=== PATIENT | female | born 1985 | race Caucasian/White ===

== ENCOUNTER 2021-04-26 17:55 | Emergency (ER) | payer BC ==
[~2021-04-26] VITALS: Ht 165.1 cm; Wt 120.2 kg
[2021-04-26] MEDS ORDERED: DIPH12.529 PO (20:49)
[2021-04-26] MEDS ORDERED: SYMB80INH INH (20:49)
[2021-04-26] MEDS ORDERED: PROT20TA11 PO (20:49)
[2021-04-26] MEDS ORDERED: CYCL-707 PO (20:49)
[2021-04-26 21:52] LABS: BASO % 0.4 % (0.0-1.0); EOS # 0.4 10^3/uL (0.0-0.5); EOS % 4.1 % (0.0-3.0); HEMATOCRIT 41.2 % (36.0-47.0); HEMOGLOBIN 13.8 g/dl (12.0-15.5); LYMPH # 2.9 10^3/uL (1.5-5.0); LYMPH % 32.1 % (24.0-44.0); MEAN CORPUSCULAR HEMOGLOBIN 28.9 pg (27.0-33.0); MEAN CORPUSCULAR HGB CONC 33.5 g/dl (32.0-36.5); MEAN CORPUSCULAR VOLUME 86.4 fl (80.0-96.0); MONO # 0.6 10^3/uL (0.0-0.8); MONO % 6.2 % (2.0-8.0); NEUTROPHILS # 5.2 10^3/uL (1.5-8.5); NEUTROPHILS % 56.9 % (36.0-66.0); PLATELET COUNT, AUTOMATED 244 10^3/uL (150-450); RED BLOOD COUNT 4.77 10^6/uL (4.00-5.40); WHITE BLOOD COUNT 9.2 10^3/uL (4.0-10.0)
[2021-04-26 22:10] LABS: HCG, SERUM QUALITATIVE NEGATIVE (NEGATIVE)
[2021-04-26 22:18] LABS: ALBUMIN 3.7 GM/DL (3.2-5.2); ALT/SGPT 30 U/L (12-78); BILIRUBIN,DIRECT 0.3 MG/DL (0.0-0.2); BILIRUBIN,TOTAL 1.2 MG/DL (0.2-1.0); BLOOD UREA NITROGEN 11 MG/DL (7-18); CALCIUM LEVEL 9.2 MG/DL (8.5-10.1); CARBON DIOXIDE LEVEL 25 MEQ/L (21-32); CHLORIDE LEVEL 110 MEQ/L (98-107); CK-MB VALUE MASS < 1.0 NG/ML (<3.6); CPK CREATINE PHOSPHOKINASE 83 U/L (26-192); FREE T4 1.06 NG/DL (0.76-1.46); GLOMERULAR FILTRATION RATE > 60.0 (>60); GLUCOSE, FASTING 97 MG/DL (70-100); LIPASE 92 U/L (73-393); POTASSIUM SERUM 3.9 MEQ/L (3.5-5.1); SODIUM LEVEL 140 MEQ/L (136-145); TOTAL PROTEIN 7.2 GM/DL (6.4-8.2); TROPONIN I < 0.02 NG/ML (< 0.10)
--- NOTE | 2021-04-26 23:24 | REPVR ---
PROCEDURE INFORMATION: Exam: US Abdomen, Limited; Right Upper Quadrant Exam date and time: 04/26/21 (10:02pm) Age: 35 years old Clinical indication: RUQ pain. Epigastric pain. TECHNIQUE: Imaging protocol: US abdomen. Real time ultrasound with image documentation. Limited examination focused on the right upper quadrant. COMPARISON: No relevant prior studies available FINDINGS: The liver is visually normal in size and texture. The gallbladder has normal wall thickness (2.2 mm), with no stones nor sludge seen. No pericholecystic fluid is appreciated. The sonographic Estevez's sign is reported to be (+). The CBD is not dilated (3.8 mm diameter). The pancreas appears unremarkable. The right kidney measures 11.7 cm in length, with no hydronephrosis appreciated. No ascites is seen. IMPRESSION: No gallstones nor sludge are seen. No pericholecystic fluid. No biliary dilatation. It is reported that the patient experienced tenderness over the RUQ area during the examination. No abnormal fluid collections. Electronically signed by: Stephenie Coelho On 04/26/2021 23:24:17 PM
--- NOTE | 2021-04-26 23:27 | REPVR ---
PROCEDURE INFORMATION: Exam: XR Chest Exam date and time: 04/26/21 (10:21pm) Age: 35 years old Clinical indication: Angina pectoris TECHNIQUE: Imaging protocol: XR of the chest Views: 1 view COMPARISON: No relevant prior studies available FINDINGS: Lungs: Unremarkable. No consolidation. Pleural spaces: Unremarkable. No pleural effusions. No pneumothorax. Heart/Mediastinum: Unremarkable. No cardiomegaly. Bones/joints: Unremarkable. IMPRESSION: No acute findings. Electronically signed by: Stephenie Coelho On 04/26/2021 23:26:46 PM
[2021-04-27] MEDS ORDERED: SUCR1SS PO (00:26)
[2021-04-27 00:45] VITALS: BP 154/73
--- NOTE | 2021-04-27 17:40 | ECGEPIP ---
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
== END 2021-04-27 00:48 | disposition home or self-care (01) ==
LOC: M ED 17:55
DX: K29.50 Unspecified chronic gastritis without bleeding (principal); J45.909 Unspecified asthma, uncomplicated; K21.9 Gastro-esophageal reflux disease without esophagitis; L40.50 Arthropathic psoriasis, unspecified; Z88.0 Allergy status to penicillin; Z79.899 Other long term (current) drug therapy

== ENCOUNTER 2021-08-18 21:06 | Emergency (ER) | payer BC ==
[~2021-08-18] VITALS: Ht 165.1 cm; Wt 120.5 kg
[~2021-08-18 21:06] MED LIST: CYCL-707 PO; DIPH12.529 PO; PROT20TA11 PO; SUCR1SS PO; SYMB80INH INH
[2021-08-18] MEDS ORDERED: NS 1,000 ML IV SCH (21:35)
[2021-08-18] MEDS ORDERED: PANTOPRAZOLE 40MG VIAL (C9113 PER 1) IV ONE (21:35)
[2021-08-18] MEDS ORDERED: GI COCKTAIL 50ML BTL(HYOSCYAMINE/MAALOX/LIDOCAINE VISCOUS)(1:3:1) PO ONE (21:35)
[2021-08-18 22:25] LABS: BASO % 0.4 % (0.0-1.0); EOS # 0.1 10^3/uL (0.0-0.5); HEMATOCRIT 43.7 % (36.0-47.0); HEMOGLOBIN 14.6 g/dl (12.0-15.5); LYMPH # 1.9 10^3/uL (1.5-5.0); LYMPH % 19.7 % (24.0-44.0); MEAN CORPUSCULAR HEMOGLOBIN 29.1 pg (27.0-33.0); MEAN CORPUSCULAR HGB CONC 33.4 g/dl (32.0-36.5); MEAN CORPUSCULAR VOLUME 87.2 fl (80.0-96.0); MONO # 0.3 10^3/uL (0.0-0.8); NEUTROPHILS # 7.5 10^3/uL (1.5-8.5); NEUTROPHILS % 75.7 % (36.0-66.0); RED BLOOD COUNT 5.01 10^6/uL (4.00-5.40); WHITE BLOOD COUNT 9.9 10^3/uL (4.0-10.0)
[2021-08-18 22:49] LABS: ALT/SGPT 32 U/L (12-78); BLOOD UREA NITROGEN 13 MG/DL (7-18); CALCIUM LEVEL 9.4 MG/DL (8.5-10.1); CARBON DIOXIDE LEVEL 26 MEQ/L (21-32); CHLORIDE LEVEL 109 MEQ/L (98-107); CREATININE FOR GFR 0.84 MG/DL (0.55-1.30); GLOMERULAR FILTRATION RATE > 60.0 (>60); GLUCOSE, FASTING 111 MG/DL (70-100); POTASSIUM SERUM 4.8 MEQ/L (3.5-5.1); SODIUM LEVEL 140 MEQ/L (136-145)
[2021-08-18 22:50] LABS: ALBUMIN 3.9 GM/DL (3.2-5.2); BILIRUBIN,DIRECT < 0.1 MG/DL (0.0-0.2); BILIRUBIN,TOTAL 0.3 MG/DL (0.2-1.0); LIPASE 102 U/L (73-393); TOTAL PROTEIN 7.6 GM/DL (6.4-8.2)
[2021-08-18 22:53] LABS: HCG, SERUM QUALITATIVE NEGATIVE (NEGATIVE)
[2021-08-18] MEDS: GASTROGRAFIN SOLUTION 30ML PO SCH (23:58)
[2021-08-19] MEDS: GASTROGRAFIN SOLUTION 30ML PO SCH (00:10)
[2021-08-19 00:57] VITALS: BP 140/58
== END 2021-08-19 02:30 | disposition home or self-care (01) ==
LOC: EDBD 21:06 → M ED 21:06
DX: K42.9 Umbilical hernia without obstruction or gangrene (principal); J45.909 Unspecified asthma, uncomplicated; M48.00 Spinal stenosis, site unspecified; Z87.19 Personal history of other diseases of the digestive system; Z88.0 Allergy status to penicillin; Z79.899 Other long term (current) drug therapy
CPT/HCPCS: 74177; 80048; 80076; 83690; 84484; 84703; 85025; 93005; 93041; 96361; 96374; 99285; C9113; Q9963

== ENCOUNTER → 2021-10-17 | Outpatient (CLI) | payer BC | LOC: M PAIN 13:00 | PROVIDERS: ATTEND Nurse Practitioner Family | DX: M51.34 Other intervertebral disc degeneration, thoracic region (principal); R07.81 Pleurodynia; G89.4 Chronic pain syndrome; L40.50 Arthropathic psoriasis, unspecified; Z79.899 Other long term (current) drug therapy; Z87.891 Personal history of nicotine dependence; Z88.0 Allergy status to penicillin; J30.9 Allergic rhinitis, unspecified ==